=== PATIENT | male | born 1980 | race Caucasian/White ===

== ENCOUNTER 2016-09-17 14:39 | Emergency (ER) | payer BC ==
[~2016-09-17] VITALS: Ht 162.6 cm; Wt 112.2 kg
[2016-09-17 17:07] VITALS: BP 117/71
== END 2016-09-17 17:08 | disposition home or self-care (01) ==
LOC: EME 14:39
DX: G43.909 Migraine, unspecified, not intractable, without status migrainosus (principal)
CPT/HCPCS: 70450; 99281; 99284; J1885